=== PATIENT | male | born 1950 | race Caucasian/White ===

== ENCOUNTER 2019-04-19 12:37 | Inpatient (IN) ==
--- NOTE | 2019-04-19 15:20 | Internal Med History&Physical ---
Date of Encounter: 04/19/19 Time of Encounter: 15:17 Internal Medicine - H&P: HPI Chief complaint: weakness Admitted From: Home Plans for Post Hospital Care: Home History of present illness: Mr. Mejia is a 68 year old male was transferred here from [facility] for further management of severe symptomatic anemia. Patient is a poor historian. History obtained from previous chart and from family member large extent. Patient has past medical history of possible rheumatologic arthritis for which she is on Humira, unknown hypercoagulopathy with history of PE about 10 years ago on xarelto went to [facility] because he has been feeling weak and short of breath with minimal activity. Patient was found to have severe anemia with hemoglobin of 3.4 and positive stool occult blood while he is on xarelto. He had a CT chest without contrast which showed multiple bilateral masslike spiculated consolidation with suspicion of progressive fibrosis per radiology. CT abdomen was unremarkable. He was transferred here for further management. Patient was seen ICU. He had received 2 units of PRBC. He mentioned he has been feeling this weakness and shortness of breath for many months however worse over the past few weeks. He also mentions for many months she had noted dark color stool. Denies taking any pain medication except prednisone for his joints. Denies taking any other pain medication. He did report having some epistaxis as well. Denies any chest pain but does have significant shortness of breath with minimal exertion. He denies any abdominal pain, nausea, vomiting or diarrhea. He likely has not had colonoscopy in his life. He follows at [facility] for PTSD and depression. He did mention he took his xarelto this morning. Discussed CODE STATUS and would like to be full code for now. 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 Past Med Surg Social Fam HX - Past Medical History Medical history: arthritis, pulmonary embolus Additional medical history: noble filter, anxiety, depression, some factor deficiency (5, 8?) Psychiatric history: anxiety, depression - Past Surgical History Additional surgical history: lt hip replacement - Social History Smokeless Tobacco Status: No Alcohol use: rarely Drug use: none - Family History Father Family Member Ethnicity: Non- Twin of Family Member: Yes, Fraternal Living Status: Hx Family Cardiac Disorders: Yes Mother Family Member Ethnicity: Non- Twin of Family Member: Yes Living Status: Still Living Internal Medicine - H&P: Meds Adalimumab [Humira] 10 mg SQ Q2W 04/19/19 [History] Rivaroxaban [Xarelto] 20 mg PO DAILY 04/19/19 [History] predniSONE [PredniSONE] 10 mg PO DAILY 04/19/19 [History] Allergy/AdvReac Type Severity Reaction Status Date / Time Iodinated Contrast- Oral and AdvReac Severe See Verified 05/27/15 01:55 IV Dye Comments All Systems PM: A 10-system review of systems was performed and is negative for pertinent findings except as documented above in the HPI. - Constitutional Vitals: Temp Pulse Resp BP Pulse Ox 97.5 F L 83 14 129/67 95 04/19/19 14:15 04/19/19 14:15 04/19/19 14:15 04/19/19 14:15 04/19/19 14:15 Exam: Constitutional: Vitals as noted. Conversant. No Apparent Distress. somewhat slow to response. Eyes : pale conjunctiva, no lid lag, PEARLA. ENT : Grossly normal hearing. Oropharyngeal exam unremarkable. dry mucus membranes. No JVD, no cervical lymphadenopathy. no thyromegaly or mass. Respiratory : Clear to auscultation bilaterally. No accessory muscle use, rales, rhonchi or wheezes. bronchial sounds bilaterally Cardiovascular : RRR, +S1, +S2. no murmur, gallop, rubs. No chest wall tenderness GI/Abdominal : Soft, Non-tender, Non-distended, normal bowel sounds, no peritoneal signs. no orgenomegaly or mass appreciated. no hernia. Musculoskeletal: no edema , warm extremities, pulses palpable and symmetrical in UE/LE. no calf tenderness. deformities in b/l hand and in 1st toes b/l Neurological: AO X2, CN II-XII grossly intact, grossly normal motor and sensory exam. Skin: pale skin Pych: AOx2, on and off confused. Internal Med - H&P Results - EKG Data -: EKG Interpreted by Myself EKG shows normal: sinus rhythm - Assessment and Plan (1) GI bleed Current Visit: No Status: Acute Assessment and plan: Patient likely has GI bleed possibly upper given reported melena history. Also has positive stool occult blood Patient took xarelto this morning. We will hold for now. Received 2 PRBC so far we will do 1 more and keep on IV fluids at 1 25 mL an hours for now. We will obtain hemoglobin and hematocrit after third transfusion. We will obtain pro-calcitonin as well. Lactic acidosis likely from severe anemia . Hold for any antibiotics for now. Qualifiers: GI bleed type/associated pathology: unspecified gastrointestinal hemorrhage type Qualified Code(s): K92.2 - Gastrointestinal hemorrhage, unspecified (2) Anemia due to acute blood loss Current Visit: Yes Status: Acute (3) Symptomatic anemia Current Visit: Yes Status: Acute Assessment and plan: As above (4) Anxiety and depression Current Visit: No Status: Acute Assessment and plan: Has history of PTSD after [place]. Unclear what medication he is on. Probably not taking any medications as of now. We will confirm home medications with pharmacy (5) History of pulmonary embolism Current Visit: No Status: Acute Assessment and plan: Currently on xarelto for pulmonary embolus about 10 years ago. Also has IVC filter. Appears to have been unprovoked based on history. He is on Humira for likely rheumatological causes of arthritis. 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 History is unremarkable We will be holding xarelto for now. We will consult hematology in 1-2 days. (6) Lung mass Current Visit: No Status: Acute Assessment and plan: Found to have a spiculated mass on CT bilaterally with extended she was smoking history. Without significant lymphadenopathy. Could be pulmonary fibrosis per cardiology We will consult pulmonology for need for biopsy. (7) DVT prophylaxis Current Visit: Yes Status: Acute Assessment and plan: EPC D - Time Spent With Patient Total time spent is greater than 50% in coordination of care (as documented) at patient's floor/unit and/or counseling patient:
[2019-04-19] MEDS ORDERED: Naloxone 0.4 MG/ML INJ IVP PRN (16:01)
[2019-04-19] MEDS: Pantoprazole 40 MG VIAL IVP SCH ×2 (16:43→16:48)
[2019-04-19] MEDS: 0.9 % Sodium Chloride 1,000 ML IVC SCH (16:44)
[2019-04-19 16:57] LABS: Hematocrit 21.9 % (37.5-50.1); Hemoglobin 6.2 g/dL (12.9-16.9)
--- NOTE | 2019-04-19 17:57 | AcuteCare Surgery Consult Note ---
Date of Encounter: 04/19/19 Time of Encounter: 04:50 Assessment and Plan (1) Severe anemia Current Visit: No Status: Acute I explained to the patient that I agree with the resuscitation and packed red blood cell transfusion. I do think that an EGD and colonoscopy would be warranted during this admission, however, we would need to resuscitate him furth er prior to subjecting him to a bowel prep which would cause dehydration and possible worsening of his overall symptoms. I will reevaluate him tomorrow and if he appears to be hemodynamically stable then we will initiate a bowel prep for potential endoscopy the following day. The patient verbalized his understanding and agrees with the above plan. History of Present Illness Consult date: 04/19/19 Reason for consult: other (Dark stools, weakness) Requesting physician: Kassandra Lynn History of present illness: The patient is a 68-year-old male with a past medical history significant for hypothyroidism, history of arthritis, hypertension, and pulmonary embolism previous been on anti-coagulation but is no longer on any anticoagulation states that over the past 6-8 weeks is been feeling weak and short of breath. He says that over the same time. He has been having dark-colored stools. He denies any nausea or vomiting and denies any diarrhea or constipation and has a bowel movement once a day. He is never had an endoscopy procedure and denies any family history of colon cancer or gastric cancer. Because of his progressive symptoms [place] [facility] [place] [facility] secondary to severe anemia with a hemoglobin of 3.6. Past Med Surg Social Fam HX - Past Medical History Medical history: arthritis, pulmonary embolus Additional medical history: noble filter, anxiety, depression, some factor deficiency (5, 8?) Psychiatric history: anxiety, depression - Past Surgical History Additional surgical history: lt hip replacement - Social History Smoking Status: Current every day smoker Smokeless Tobacco Status: No Alcohol use: rarely Drug use: none - Family History Father Family Member Ethnicity: Non- Twin of Family Member: Yes, Fraternal Living Status: Hx Family Cardiac Disorders: Yes Mother Family Member Ethnicity: Non- Twin of Family Member: Yes Living Status: Still Living Medications and Allergies Rivaroxaban [Xarelto] 20 mg PO DAILY 04/19/19 [History] Adalimumab [Humira] 40 mg SQ Q2W 04/20/19 [History] Methotrexate [Otrexup] 20 mg PO WE 04/20/19 [History] Naproxen Sodium [Aleve] 440 mg PO DAILY PRN 04/20/19 [History] predniSONE [PredniSONE] 5 mg PO DAILY 04/20/19 [History] Allergy/AdvReac Type Severity Reaction Status Date / Time Iodinated Contrast- Oral and AdvReac Severe See Verified 04/20/19 12:29 IV Dye Comments Review of Systems All systems PM: reviewed and no additional remarkable complaints except as stated All systems PM: The remainder of the systems were reviewed and are negative General Surgery Exam Initial Vital Signs Temp Pulse Resp BP Pulse Ox 97.5 F L 83 14 129/67 95 04/19/19 14:15 04/19/19 14:15 04/19/19 14:15 04/19/19 14:15 04/19/19 14:15 - Eyes PERRL, normal ocular movement - Respiratory normal expansion, clear to auscultation - Cardiovascular Cardiovascular exam: Present: RRR, no murmurs/rubs/gallops - Abdomen Abdomen general surgery: Present: bowel sounds present, soft, non tender (No masses palpated) - Neurologic Present: CN 2-12 grossly intact, normal coordination - Musculoskeletal Present: other (No clubbing, cyanosis, or edema) - Psychiatric Psychiatric general surgery: Present: A&Ox3, appropriate, oriented to person, oriented to place, oriented to time Exam Initial Vital Signs Temp Pulse Resp BP Pulse Ox 97.5 F L 83 14 129/67 95 04/19/19 14:15 04/19/19 14:15 04/19/19 14:15 04/19/19 14:15 04/19/19 14:15 Results - Labs 04/20/19 21:50 04/20/19 03:25 Abnormal lab results Hgb 6.2 g/dL (12.9-16.9) L D 04/19/19 16:41 Hct 21.9 % (37.5-50.1) L 04/19/19 16:41 All other labs normal. Consult Discharge Plan - Plan [facility]: [facility] [Primary Care Provider] -
[2019-04-19] MEDS ORDERED: 0.9 % Sodium Chloride 250 ML ONE (20:13)
[2019-04-20 03:38] LABS: Basophils % 0.3 %; Eosinophils # 0.2 K/mcL (0.0-0.6); Eosinophils % 2.3 %; Hematocrit 23.3 % (37.5-50.1); Hemoglobin 7.1 g/dL (12.9-16.9); Immature Granulocytes % 0.6 % (0-4); Lymphocytes # 1.8 K/mcL (0.6-4.6); Lymphocytes % 18.8 %; Mean Corpuscular HGB Conc 30.5 g/dL (31.6-35.5); Mean Corpuscular Hemoglobin 23.1 pg (28.0-33.3); Mean Corpuscular Volume 75.6 fL (83.0-100.0); Monocytes % 10.5 %; Neutrophils # 6.4 K/mcL (1.6-8.9); Nucleated Red Blood Cells 0.8 /100 WBC (0); Platelet Count 383 K/mcL (140-400); Red Blood Count 3.08 M/mcL (4.19-5.50); Red Cell Distribution Width 22.6 % (11.5-14.5); Segmented Neutrophils % 67.5 %; White Blood Count 9.4 K/mcL (4.3-11.1)
[2019-04-20 04:00] LABS: BUN/Creatinine Ratio 16 (6-26); Blood Urea Nitrogen 18 mg/dL (8-23); Calcium 8.3 mg/dL (8.6-10.3); Carbon Dioxide 20 mEq/L (23-29); Chloride 109 mEq/L (98-107); Glucose 81 mg/dL (70-105); Osmolality,Calculated 289 (280-300); Potassium 3.8 mEq/L (3.5-5.1); Sodium 139 mEq/L (136-145); eGFR For African Americans > 60 (> 60); eGFR For Non-African Americans > 60 (> 60)
[2019-04-20 04:01] LABS: Troponin I 0.03 ng/mL (< 0.04)
[2019-04-20] MEDS: 0.9 % Sodium Chloride 1,000 ML IVC SCH (04:19)
[2019-04-20] MEDS: Pantoprazole 40 MG VIAL IVP SCH ×2 (05:52→18:30)
--- NOTE | 2019-04-20 08:55 | Pulmonology Consult Note ---
Date of Encounter: 04/20/19 Time of Encounter: 08:00 Assessment and Plan (1) Lesion of right lung Current Visit: Yes Status: Acute I have reviewed CT chest personally and differential diagnosis is broad in this case. He has multiple risk factors including heavy smoking for many years and occupational exposure as well as he has been in the and he does have rheumatoid arthritis. Old dose can have significant impact on the lung function and he is presented for anemia which needs to be worked up and I have told them about bronchoscopy as well as pulmonary function test that can be done as outpatient. I suspect this could be mostly fibrosis, however infection as well as malignancies remain in the differential diagnosis due to his risk factors. He can be treated for COPD at this time and further workup and be done as outpatient. I will check QuantiFERON and also Aspergillus and histoplasma antigen for screening. Thank you very much for consultation. (2) COPD (chronic obstructive pulmonary disease) Current Visit: Yes Status: Chronic Patient has emphysematous changes in his CT chest and will treat him for COPD. Full pulmonary function test and follow-up can be done as outpatient. Qualifiers: COPD type: unspecified COPD Qualified Code(s): J44.9 - Chronic obstructive pulmonary disease, unspecified (3) Heavy tobacco smoker Current Visit: Yes Status: Chronic Advised patient to quit smoking and will start him on the extent patch due to cravings. History of Present Illness Consult date: 04/20/19 Requesting physician: Kassandra Lynn Reason for consult: abnormal CXR/CT Chief complaint: Weakness History of present illness: This is a pleasant 68-year-old male with significant history smoking tobacco and continue to smoke at least 1 pack a day. Patient stated he was never seen by organisational psychologist and he was never diagnosed with COPD or had pulmonary function tests. 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 Patient stated he does have some shortness of breath but denies any hemoptysis and he reports some weight loss. Patient denies any significant productive cough or sputum production. He was transferred from [facility] for management of his symptomatic anemia. Patient has history of rheumatoid arthritis and his been treated with biologic and he said he was tested for TB and it was negative in the past and he denies any sick contact. Patient denies any night sweats and denies any chest pain. Patient has been on anticoagulation. Past Med Surg Social Fam HX - Past Medical History Medical history: arthritis, pulmonary embolus Additional medical history: noble filter, anxiety, depression, some factor deficiency (5, 8?) Psychiatric history: anxiety, depression - Past Surgical History Additional surgical history: lt hip replacement - Social History Smoking Status: Current every day smoker Smokeless Tobacco Status: No Alcohol use: rarely Drug use: none - Family History Father Family Member Ethnicity: Non- Twin of Family Member: Yes, Fraternal Living Status: Hx Family Cardiac Disorders: Yes Mother Family Member Ethnicity: Non- Twin of Family Member: Yes Living Status: Still Living Medications and Allergies Adalimumab [Humira] 10 mg SQ Q2W 04/19/19 [History] Rivaroxaban [Xarelto] 20 mg PO DAILY 04/19/19 [History] predniSONE [PredniSONE] 10 mg PO DAILY 04/19/19 [History] Allergy/AdvReac Type Severity Reaction Status Date / Time Iodinated Contrast- Oral and AdvReac Severe See Verified 05/27/15 01:55 IV Dye Comments All Systems: The remainder of the systems were reviewed and are negative Physical Examination Vital Signs: Vital Signs, Last 4 Hours Temp Pulse Resp BP Pulse Ox 04/20/19 07:38 98.8 F 87 16 153/79 99 General appearance: no acute distress Eyes: nonicteric ENT: oropharynx dry Mallampati (class): 2 Neck: supple, no lymphadenopathy Effort: normal Inspection: hyperextended Auscultation: bilateral: rhonchi Percussion: bilateral: not dull Tactile fremitus: bilateral: normal Cardiovascular: regular rate and rhythm Gastrointestinal: normoactive bowel sounds, non-distended Extremities: no cyanosis, no edema, no clubbing Musculoskeletal: other (Joints deformity from rheumatoid arthritis) normal mental status, non-focal exam mood appropriate Results - Laboratory Findings CBC and BMP: 04/20/19 03:25 04/20/19 03:25 Abnormal lab findings: Abnormal lab results RBC 3.08 M/mcL (4.19-5.50) L 04/20/19 03:25 Hgb 7.1 g/dL (12.9-16.9) L 04/20/19 03:25 Hct 23.3 % (37.5-50.1) L 04/20/19 03:25 MCV 75.6 fL (83.0-100.0) L 04/20/19 03:25 MCH 23.1 pg (28.0-33.3) L 04/20/19 03:25 MCHC 30.5 g/dL (31.6-35.5) L 04/20/19 03:25 RDW 22.6 % (11.5-14.5) H 04/20/19 03:25 MPV 9.0 fL (9.4-12.4) L 04/20/19 03:25 Nucleated RBCs/100 WBC 0.8 /100 WBC (0) H 04/20/19 03:25 Chloride 109 mEq/L (98-107) H 04/20/19 03:25 Carbon Dioxide 20 mEq/L (23-29) L 04/20/19 03:25 Calcium 8.3 mg/dL (8.6-10.3) L 04/20/19 03:25 Crossmatch See Detail 04/19/19 16:42 - Diagnostic Findings CT scan - chest: report reviewed, image reviewed - Clinical Findings Intake & Output: Intake & Output 04/19/19 04/20/19 04/20/19 23:59 07:59 15:59 Intake Total 590 / 590 1000 / 1000 Output Total 700 / 700 300 / 300 Balance -110 / -110 700 / 700 Weight 77.5 kg Consult Discharge Plan - Plan [facility]errals: [facility] [Primary Care Provider] -
--- NOTE | 2019-04-20 09:34 | Internal Med Progress Note ---
Hospitalist Progress Note - Encounter Date of Encounter: 04/20/19 Time of Encounter: 08:34 - Subjective Interval History: Patient seen and examined this morning and was under no acute overnight events. Denies new complaints. Has not had any bowel movement. Denies any chest pain difficulty breathing or shortness of breath. Feeling slightly better. - Exam Vitals: Temp Pulse Resp BP Pulse Ox 98.8 F 87 16 153/79 99 04/20/19 07:38 04/20/19 07:38 04/20/19 07:38 04/20/19 07:38 04/20/19 07:38 Exam: constitutional: Vitals as noted. Conversant. No Apparent Distress. somewhat slow to response. Respiratory : Clear to auscultation bilaterally. No accessory muscle use. bronchial sounds bilaterally. Occasional rhonci Cardiovascular : RRR, +S1, +S2. no murmur, gallop, rubs. No chest wall tende rness GI/Abdominal : Soft, Non-tender, Non-distended, normal bowel sounds, no p eritoneal signs. Musculoskeletal: no edema , no calf tenderness. deformities in b/l hand and in 1st toes b/l Neurological: AO X2, CN II-XII grossly intact, grossly normal motor and sensory exam. Skin: pale skin - Assessment and Plan (1) GI bleed Current Visit: No Status: Acute (2) Anemia due to acute blood loss Current Visit: Yes Status: Acute (3) Symptomatic anemia Current Visit: Yes Status: Acute (4) Anxiety and depression Current Visit: No Status: Acute (5) History of pulmonary embolism Current Visit: No Status: Acute (6) Lung mass Current Visit: No Status: Acute (7) DVT prophylaxis Current Visit: Yes Status: Acute - Summary of Assessment and Plan Summary of Assessment and Plan: Assessment Acute GI bleed symtomatic severe anemia anemia due to blood loss Lesion of rt lung lactic acidosis-resolved Chronic anxiety, depression, PTSH h/o PE on xarelo COPD Heavy tobacco smoker likely rheumatoid arthritis Plan - s/p 3 PRBC. b at 7.1 monitor q8hr. Will transfuse if drops or has Bloody BM. c/w PPI IV BID. Surgery following for Colonoscopy/EGD. xarelto stopped. Last dose yesterday morning. - normal pro-calcitonin . no indication of antibiotics. Does have lung lesion. Pulmonology consulted due to high risk factors. recommendation appreciated.f/u aspergillus, histoplasma and quantiferon. will need outpatient bronchoscopy/PFT. Started on symbicort and duonebs. - xarelto on hold. PE was about 10-11 years ago. Unclear factor deficiency. Will need Hemonc follow up outpatient. - EPCD for DVT ppx. Internal Medicine: Result - Labs CBC & Chem 7: 04/20/19 03:25 04/20/19 03:25 Labs: Short CBC 04/19/19 04/20/19 Range/Units 16:41 03:25 WBC 9.4 (4.3-11.1) K/mcL Hgb 6.2 L D 7.1 L (12.9-16.9) g/dL Hct 21.9 L 23.3 L (37.5-50.1) % Plt Count 383 (140-400) K/mcL Neutrophils # 6.4 (1.6-8.9) K/mcL BMP 04/20/19 03:25 Sodium 139 Potassium 3.8 Chloride 109 H Carbon Dioxide 20 L BUN 18 Creatinine 1.16 Glucose 81 Calcium 8.3 L Cardiac Enzymes 04/20/19 Range/Units 03:25 Troponin I 0.03 (< 0.04) ng/mL Consult Discharge Plan - Plan [facility]errals: [facility] [Primary Care Provider] - (1) GI bleed Qualifiers: GI bleed type/associated pathology: unspecified gastrointestinal hemorrhage type Qualified Code(s): K92.2 - Gastrointestinal hemorrhage, unspecified
[2019-04-20] MEDS: Nicotine 21 MG PATCH.TD24 TD SCH (10:27)
[2019-04-20] MEDS: Budesonide/Formoterol 160/4.5 1 PUFF INH IH SCH ×2 (11:09→22:31)
[2019-04-20] MEDS: Ipratropium/Albuterol Neb 3 ML IH SCH ×3 (11:09→22:32)
[2019-04-20 13:13] LABS: Hematocrit 24.6 % (37.5-50.1); Hemoglobin 7.4 g/dL (12.9-16.9)
--- NOTE | 2019-04-20 13:45 | AcuteCareSurgery Progress Note ---
Date of Encounter: 04/20/19 Time of Encounter: 13:44 - Assessment and Plan (1) Severe anemia Current Visit: No Status: Acute I explained to the patient that we will go ahead and start the bowel prep. He can have clear liquids and also coffee (no blood products) we will make him nothing by mouth after midnight and will check to see if he is clear with his bowel movements tomorrow morning. Subjective Patient reports: feels better (No complaints. Passing flatus.) Objective Vital Signs - Last 8 Hours Temp Pulse Resp BP Pulse Ox 04/20/19 11:17 18 100 04/20/19 07:38 98.8 F 87 16 153/79 99 Intake and Output 04/19/19 04/20/19 04/20/19 23:59 07:59 15:59 Intake Total 590 / 590 1000 / 1000 Output Total 700 / 700 300 / 825 525 / 825 Balance -110 / -110 700 / 175 -525 / 175 Intake: IV Fluids 1000 / 1000 0.9 % Sodium Chloride 1,000 ML 1000 / 1000 @ 125 mls/hr IVC .Q8H [facility] Rx#: [id number] Oral 240 / 240 0 / 0 Blood Product 350 / 350 Rbcs Leuko Poor As-1 Unit 350 / 350 [id number] Output: Urine 700 / 700 300 / 825 525 / 825 Other: Weight 77.5 kg Patient Weight 04/20/19 23:59 Weight 77.5 kg - General physical appearance well nourished, no distress - Abdomen Abdomen: Present: soft, non tender - Labs 04/20/19 12:56 04/20/19 03:25 Diabetes panel 04/20/19 Range/Units 03:25 Sodium 139 (136-145) mEq/L Potassium 3.8 (3.5-5.1) mEq/L Chloride 109 H (98-107) mEq/L Carbon Dioxide 20 L (23-29) mEq/L BUN 18 (8-23) mg/dL Creatinine 1.16 (0.70-1.30) mg/dL Glucose 81 (70-105) mg/dL Calcium 8.3 L (8.6-10.3) mg/dL Calcium panel 04/20/19 Range/Units 03:25 Calcium 8.3 L (8.6-10.3) mg/dL Pituitary panel 04/20/19 Range/Units 03:25 Sodium 139 (136-145) mEq/L Potassium 3.8 (3.5-5.1) mEq/L Chloride 109 H (98-107) mEq/L Carbon Dioxide 20 L (23-29) mEq/L BUN 18 (8-23) mg/dL Creatinine 1.16 (0.70-1.30) mg/dL Glucose 81 (70-105) mg/dL Calcium 8.3 L (8.6-10.3) mg/dL Adrenal panel 04/20/19 Range/Units 03:25 Sodium 139 (136-145) mEq/L Potassium 3.8 (3.5-5.1) mEq/L Chloride 109 H (98-107) mEq/L Carbon Dioxide 20 L (23-29) mEq/L BUN 18 (8-23) mg/dL Creatinine 1.16 (0.70-1.30) mg/dL Glucose 81 (70-105) mg/dL Calcium 8.3 L (8.6-10.3) mg/dL Consult Discharge Plan - Plan [facility]errals: [facility] [Primary Care Provider] -
[2019-04-20 22:59] LABS: Hematocrit 25.3 % (37.5-50.1); Hemoglobin 7.5 g/dL (12.9-16.9)
[2019-04-20] MEDS: Acetaminophen 325 MG TABLET PO PRN (23:54)
[2019-04-21] MEDS: Ipratropium/Albuterol Neb 3 ML IH SCH ×4 (04:09→22:52)
[2019-04-21] MEDS: Pantoprazole 40 MG VIAL IVP SCH ×2 (05:55→16:55)
[2019-04-21 08:04] LABS: Hematocrit 25.5 % (37.5-50.1); Hemoglobin 7.6 g/dL (12.9-16.9)
--- NOTE | 2019-04-21 08:33 | Internal Med Progress Note ---
Hospitalist Progress Note - Encounter Date of Encounter: 04/21/19 Time of Encounter: 08:33 - Subjective Interval History: Patient seen and examined this morning at bedside. events. denies new complaints denies any blood in stool. bowel movements still not completely clear. denies any chest pain or difficulty breathing. - Exam Vitals: Temp Pulse Resp BP Pulse Ox 99.0 F 104 16 153/71 92 04/21/19 07:16 04/21/19 07:16 04/21/19 07:16 04/21/19 07:16 04/21/19 07:16 Exam: constitutional: Vitals as noted. Conversant. No Apparent Distress. Respiratory : Clear to auscultation bilaterally. No accessory muscle use. bro nchial sounds bilaterally. Cardiovascular : RRR, +S1, +S2. no murmur, gallop, rubs. No chest wall tenderness GI/Abdominal : Soft, Non-tender, Non-distended, normal bowel sounds, no peritoneal signs. Musculoskeletal: no edema , no calf tenderness. deformities in b/l hand and in 1st toes b/l Neurological: AO X2, CN II-XII grossly intact, grossly normal motor and sensory exam. Skin: pale skin - Assessment and Plan (1) GI bleed Current Visit: No Status: Acute (2) Anemia due to acute blood loss Current Visit: Yes Status: Acute (3) Symptomatic anemia Current Visit: Yes Status: Acute (4) Anxiety and depression Current Visit: No Status: Acute (5) History of pulmonary embolism Current Visit: No Status: Acute (6) Lung mass Current Visit: No Status: Acute (7) DVT prophylaxis Current Visit: Yes Status: Acute - Summary of Assessment and Plan Summary of Assessment and Plan: Assessment Acute GI bleed symtomatic severe anemia anemia due to blood loss Lesion of rt lung lactic acidosis-resolved Chronic anxiety, depression, PTSH h/o PE on xarelo COPD Heavy tobacco smoker likely rheumatoid arthritis Plan - s/p 3 PRBC. Hb stable. c/w PPI IV BID. Surgery following for Colonoscopy/EGD. xarelto stopped. Will give tap water enema for better bowel prep. - normal pro-calcitonin . no indication of antibiotics. Does have lung lesion. Pulmonology consulted due to high risk factors. recommendation appreciated. f/u aspergillus, histoplasma and quantiferon. will need outpatient bronchoscopy/PFT. Started on symbicort and duonebs. - xarelto on hold. Will stop on DC. PE was about 10-11 years ago. Unclear factor deficiency. Will need Hemonc follow up outpatient. - EPCD for DVT ppx. Internal Medicine: Result - Labs CBC & Chem 7: 04/21/19 07:50 04/20/19 03:25 Labs: Short CBC 04/20/19 04/20/19 04/21/19 Range/Units 12:56 21:50 07:50 Hgb 7.4 L 7.5 L 7.6 L (12.9-16.9) g/dL Hct 24.6 L 25.3 L 25.5 L (37.5-50.1) % Consult Discharge Plan - Plan [facility]Primary Care Provider[facility] - (1) GI bleed Qualifiers: GI bleed type/associated pathology: unspecified gastrointestinal hemorrhage type Qualified Code(s): K92.2 - Gastrointestinal hemorrhage, unspecified
[2019-04-21] MEDS: Nicotine 21 MG PATCH.TD24 TD SCH (08:52)
[2019-04-21] MEDS ORDERED: *HR* Propofol 200 MG/20 ML VIAL IVP ONE ×2 (09:21)
[2019-04-21] MEDS ORDERED: Lidocaine -MPF 2% 2 ML VIAL ONE (09:21)
--- NOTE | 2019-04-21 09:33 | Anesthesia Evaluation PreOp ---
Date of Encounter: 04/21/19 Time of Encounter: 09:45 - Past History Planned Operation: EGD, colonoscopy Cardiac History: Other (Prior hx of PE, has noble filter, maintained on Xarelto.) Pulmonary History: Smoker, COPD, Other (CT of chest shows multiple bilateral areas of consolidation felt to be pulmonary fibrosis.) CLAIMS COUNSEL History: Other (Poor historian, [facility] for [facility], anxiety, depression.) Other Medical History: Thyroid (Hx of thyroid storm 10 years ago.), Other (rhe umatoid arthritis) Anesthesia History: No Prior Anesthetic Complications, Past Anesthesia Alcohol Use: rarely (former hx of alcohol abuse, states he drinks 2-3 beers a week now.) Drug use: marijuana Medications and Allergies Rivaroxaban [Xarelto] 20 mg PO DAILY 04/19/19 [History] Adalimumab [Humira] 40 mg SQ Q2W 04/20/19 [History] Methotrexate [Otrexup] 20 mg PO WE 04/20/19 [History] Naproxen Sodium [Aleve] 440 mg PO DAILY PRN 04/20/19 [History] predniSONE [PredniSONE] 5 mg PO DAILY 04/20/19 [History] Allergy/AdvReac Type Severity Reaction Status Date / Time Iodinated Contrast- Oral and AdvReac Severe See Verified 04/20/19 12:29 IV Dye Comments - Meds/Allergy Pre-op Review Medications Reviewed: Yes Allergies Reviewed: Yes Beta Blockers on Current Med List: No Anesthesia Results - Labs 04/21/19 07:50 04/20/19 03:25 Admitted with weakness and shortness of breath. Found to have Hgb of 3.4. Has been transfused to Hgb above 7.0. - Imaging EKG: report reviewed (sinus rhythm by Internal Medicine report) Anesthesia Exam Selected Entries 04/21/19 07:16 Temperature 99.0 F Pulse Rate 104 Respiratory Rate 16 Blood Pressure 153/71 O2 Sat by Pulse Oximetry 92 Weight: 72 kg. BMI 22 NPO (# of Hours): over 8 hours - Cardiac Rhythm: Regular Murmur: None - Pulmonary Breath Sounds: bilateral Clear Respiratory Effort: Symmetrical Anesthesia Assess/Plan ASA Score: 3 Level of consciousness: Cooperative, Oriented Anesthetic Plan: MAC Monitoring Plan: Standard Monitors (Discussed MAC anesthesia, agreed to proceed.) Recovery Plan: Other
[2019-04-21] MEDS: Budesonide/Formoterol 160/4.5 1 PUFF INH IH SCH ×2 (09:38→22:52)
[2019-04-21] MEDS ORDERED: Simethicone 40 MG/0.6 ML MLS IR ONE (09:46)
[2019-04-21] MEDS ORDERED: Tetracaine/Benzocaine/Butamben 1 SPRAY AEROSOL MM ONE (09:46)
--- NOTE | 2019-04-21 10:35 | Anesthesia Evaluation Post Op ---
Date of Encounter: 04/21/19 Time of Encounter: 10:34 - Vital Signs Vital Signs: 128/58, HR 77, SpO2 100%, RR 12 - Lungs Lungs: Clear Ascult./Percussion - Airway Airway: Non-obstructed - Cardiovascular Regular Rate - Mental Status Mental Status: Alert & Oriented, Answers Appropriately - Pain Pain Scale: 0 Pain Scale used: Numeric (1 - 10) - Nausea Vomiting Nausea Vomiting: Not Present - Hydration Hydration: NPO, Has not voided - Discharge PostOp Status: Transfer Patient to floor
[2019-04-21 15:40] LABS: Hematocrit 27.8 % (37.5-50.1); Hemoglobin 8.2 g/dL (12.9-16.9)
[2019-04-21] MEDS: 0.9 % Sodium Chloride 1,000 ML IVC SCH (18:26)
[2019-04-21] MEDS: Acetaminophen 325 MG TABLET PO PRN (21:09)
[2019-04-22] MEDS: Ipratropium/Albuterol Neb 3 ML IH SCH ×3 (03:48→15:51)
[2019-04-22] MEDS: Pantoprazole 40 MG VIAL IVP SCH (06:23)
[2019-04-22] MEDS: 0.9 % Sodium Chloride 1,000 ML IVC SCH (07:39)
[2019-04-22] MEDS ORDERED: Propofol 500 MG/50 ML INFUS..BTL ONE (08:39)
[2019-04-22] MEDS ORDERED: Ondansetron 4 MG/2 ML VIAL ONE (08:53)
[2019-04-22] MEDS ORDERED: Lidocaine -MPF 2% 2 ML VIAL ONE (08:53)
[2019-04-22] MEDS: Nicotine 21 MG PATCH.TD24 TD SCH (09:23)
--- NOTE | 2019-04-22 09:56 | Event Note ---
Date of Encounter: 04/22/19 Time of Encounter: 07:45 Pt with poor bowel prep on 04/21/2019. He will return for colonoscopy today with Dr. Jenkins. Patient has signed consent placed on the hard chart. NPO for procedure
[2019-04-22] MEDS: Budesonide/Formoterol 160/4.5 1 PUFF INH IH SCH (10:11)
[2019-04-22] MEDS ORDERED: Simethicone 40 MG/0.6 ML MLS IR ONE (10:38)
[2019-04-22 11:45] VITALS: BP 111/75
[2019-04-22 13:21] LABS: QuantiFERON Mitogen minus NIL >10.00 IU/mL
[2019-04-22 13:59] LABS: A.galactomannan Ag Index 0.06
[2019-04-22] MEDS ORDERED: Fluconazole 100 MG TABLET PO ONE ×2 (14:17)
--- NOTE | 2019-04-22 14:25 | Discharge Summary ---
- NOTES TO OUTPATIENT PROVIDER Notes to Outpatient Provider: Patient will need follow-up with hematology and oncology as well as pulmonology as he will need bronchoscopy as outpatient. Follow-up quantiferron, histoplasma and aspergillus testing. We will also need to follow esophageal biopsy samples. Orders not resulted at time of discharge: Pending orders 04/20/19 10:35 Aspergillus galactomannan Ag Routine QuantiFERON-TB Gold In-Tube Routine 04/20/19 12:15 Histoplasma galactomannan,Ur Routine 04/21/19 10:11 Cytology [PTH] Routine Surgical Pathology [PTH] Routine Date of Encounter: 04/22/19 Time of Encounter: 14:13 - Discharge Diagnosis (1) Symptomatic anemia Priority: Primary Status: Acute (2) Anxiety and depression Priority: Secondary Status: Acute (3) History of pulmonary embolism Priority: Secondary Status: Acute (4) Lung mass Priority: Secondary Status: Acute (5) DVT prophylaxis Priority: Secondary Status: Acute (6) Iron deficiency anemia due to chronic blood loss Priority: Primary Status: Acute (7) Candidiasis, esophageal Priority: Secondary Status: Acute Hospital course: Mr. Mejia is a 68 year old male with past medical history of rheumatoid arthritis, pulmonary embolism 10 years ago, anxiety, depression, unknown factor deficiency was transferred from [place] [facility] with severe anemia of 3.4. He did complain of some melanotic stool and he is also on xarelto. History of blood transfusions. Patient underwent upper endoscopy which showed possible esophageal candidiasis and biopsies were taken but no other abnormality. First colonoscopy attempt was with the poor preparation however second did not show any acute bleed or any pathology. Patient hemoglobin remained stable after 3 transfusions and did not have any further bleeding. Patient had a CT chest done at [place] which showed pulmonary masses which was suspicion of malignancy versus fibrosis along with evidence of COPD. Pulmonary consult was obtained and recommended outpatient bronchoscopy and PFTs. He was started on Symbicort and nebulizers. Patient is stable and without any complaints. Patient will be discharged to follow with PCP, pulmonology, rheumatology and hematology oncology. His home xarelto was stopped and prescribed with iron supplements, Symbicort, albuterol inhaler, fluconazole. Discharge discussed with: patient, nurse, social work, mortgage consultant - Time Spent with Patient Total time spent providing and/or coordinating discharge services: Time spent: Greater than 30 minutes (35) - Discharge Medications Prescriptions: New Fluconazole [Diflucan] 200 mg PO DAILY 14 Days #28 tablet Ferrous Sulfate 325 mg PO BIDWM 30 Days #60 tablet Albuterol Sulfate [Proventil Inhaler] 1 puff IH Q4H PRN 30 Days #1 inhaler PRN Reason: Shortness Of Breath/Wheezing Budesonide/Formoterol 160/4.5 [Symbicort 160/4.5] 2 puff IH BIDR #1 inh Continued Adalimumab [Humira] 40 mg SQ Q2W Methotrexate [Otrexup] 20 mg PO WE predniSONE [PredniSONE] 5 mg PO DAILY Discontinued Naproxen Sodium [Aleve] 440 mg PO DAILY PRN PRN Reason: Mild To Moderate Pain Rivaroxaban [Xarelto] 20 mg PO DAILY Home Medications: Adalimumab [Humira] 40 mg SQ Q2W 04/20/19 [History] Methotrexate [Otrexup] 20 mg PO WE 04/20/19 [History] predniSONE [PredniSONE] 5 mg PO DAILY 04/20/19 [History] Albuterol Sulfate [Proventil Inhaler] 1 puff IH Q4H PRN 30 Days #1 inhaler 04/22/19 [Rx] Budesonide/Formoterol 160/4.5 [Symbicort 160/4.5] 2 puff IH BIDR #1 inh 04/22/19 [Rx] Ferrous Sulfate 325 mg PO BIDWM 30 Days #60 tablet 04/22/19 [Rx] Fluconazole [Diflucan] 200 mg PO DAILY 14 Days #28 tablet 04/22/19 [Rx] Allergies/Adverse Reactions: Allergy/AdvReac Type Severity Reaction Status Date / Time Iodinated Contrast- Oral and AdvReac Severe See Verified 04/20/19 12:29 IV Dye Comments Date of admission: 04/19/19 14:29 [facility] care physician: [facility] Consults: 04/19/19 16:07 Consult to Pulmonology [CONS] Routine Consulting Provider: [facility] Reason for Consult: lung mass Call Completed: No Consult to Surgery [CONS] Routine Consulting Provider: Acute Care Surgery Reason for Consult: GI bleed Call Completed: Yes Discharging clinician: Kassandra Lynn - Constitutional Vitals: Temp Pulse Resp BP Pulse Ox 97.5 F L 88 14 111/75 95 04/22/19 11:43 04/22/19 11:43 04/22/19 11:43 04/22/19 11:43 04/22/19 11:43 Exam: constitutional: Vitals as noted. Conversant. No Apparent Distress. Respiratory : Clear to auscultation bilaterally. No accessory muscle use. bronchial sounds bilaterally. Cardiovascular : RRR, +S1, +S2. no murmur, gallop, rubs. No chest wall tenderness GI/Abdominal : Soft, Non-tender, Non-distended, normal bowel sounds, no peritoneal signs. Musculoskeletal: no edema , no calf tenderness. deformities in b/l hand and in 1st toes b/l Neurological: AO X2, CN II-XII grossly intact, grossly normal motor and sensory exam. - Patient Status Disposition: Home, Self-Care - Discharge Instructions [facility] With: [facility] Care Provider[facility] - Additional Instructions: Per Dr. Joe (Pulmonology): I have told them about bronchoscopy as well as pulmonary function test that can be done as outpatient. Follow up with Hematology and oncology as well as rheumatology given xarelto is stopped and has possible esophageal candidiasis PCP will need to follow with pending results. - Diet and Activity Activity: increase activity as tolerated
[2019-04-22 14:35] LABS: QuantiFERON NIL 0.15 IU/mL; QuantiFERON-TB Gold In-Tube NEGATIVE (Negative)
== END 2019-04-22 17:05 | disposition home or self-care (01) | DRG 378 ==
LOC: SUATTDRO 14:29 → ICNU 14:29 → 2NENU 18:19
PROVIDERS: ADMIT Internal Medicine Nephrology; ATTEND Internal Medicine
PROC: ENDOEBX (2019-04-21 17:30)